=== PATIENT | female | born 1980 | race Caucasian/White ===

== ENCOUNTER 2018-11-06 18:59 | Observation (INO) | payer OTHER ==
[2018-11-06] MEDS ORDERED: SODIUM CHLORIDE 0.9% 1,000 ML IV STA (19:40)
--- NOTE | 2018-11-06 19:40 | ED ---
Chest Pain HPI - General Chief Complaint: Chest Pain Stated Complaint: Chest Pain, Dizziness Time Seen by Provider: 11/06/18 19:39 Source: patient, RN notes reviewed, old records reviewed Mode of arrival: ambulatory Limitations: no limitations - History of Present Illness Initial Comments: This is a 30-year-old female to the ER for evaluation. This patient presents today for evaluation regards to chest pain. Anterior chest pain rating to back to left arm. Mild nausea no vomiting no fevers no shortness of breath no diaphoresis. Patient also complains of dizziness, symptoms 2 days. No history of high blood pressure cholesterol diabetes. No fevers cough or congestion, no travel history or sick contacts. MD Complaint: chest pain -: days(s) (2) Onset: during rest, awoke with symptoms Pain Location: left chest Pain Radiation: LUE, jaw/teeth Severity: mild Severity scale (1-10): 3 Quality: aching Consistency: intermittent Improves With: nothing Worsens With: nothing Context: other (None) Anginal Symptoms: nausea Other Symptoms: other (None) Treatments Prior to Arrival: none - Related Data Home Medications Medication Instructions Recorded Confirmed Fexofenadine HCl [Giovanna Allergy] 180 mg PO DAILY 11/06/18 11/06/18 Multivitamins, Thera [Multivitamin 1 tab PO DAILY 11/06/18 11/06/18 (formulary)] Allergies Allergy/AdvReac Type Severity Reaction Status Date / Time No Known Allergies Allergy Verified 11/06/18 20:29 Review of Systems ROS Statement: Those systems with pertinent positive or pertinent negative responses have been documented in the HPI. ROS Other: All systems not noted in ROS Statement are negative. EKG Findings - EKG Comments: EKG Findings:: EKG shows sinus rhythm rate of 60, MO 194, QRS 84, QTC 384 Past Medical History Additional Past Medical History / Comment(s): mitral valve prolapse History of Any Multi-Drug Resistant Organisms: None Reported Past Surgical History: No Surgical Hx Reported Past Psychological History: No Psychological Hx Reported Smoking Status: Never smoker Past Alcohol Use History: None Reported Past Drug Use History: None Reported General Exam Limitations: no limitations General appearance: alert, in no apparent distress Head exam: Present: atraumatic, normocephalic, normal inspection Eye exam: Present: normal appearance, PERRL, EOMI. Absent: scleral icterus, conjunctival injection, periorbital swelling ENT exam: Present: normal exam, mucous membranes moist Neck exam: Present: normal inspection. Absent: tenderness, meningismus, lymphadenopathy Respiratory exam: Present: normal lung sounds bilaterally. Absent: respiratory distress, wheezes, rales, rhonchi, stridor Cardiovascular Exam: Present: regular rate, normal rhythm, normal heart sounds. Absent: systolic murmur, diastolic murmur, rubs, gallop, clicks GI/Abdominal exam: Present: soft, normal bowel sounds. Absent: distended, tenderness, guarding, rebound, rigid Extremities exam: Present: normal inspection, full ROM, normal capillary refill. Absent: tenderness, pedal edema, joint swelling, calf tenderness Back exam: Present: normal inspection Neurological exam: Present: alert, oriented X3, CN II-XII intact Psychiatric exam: Present: normal affect, normal mood Skin exam: Present: warm, dry, intact, normal color. Absent: rash Course Vital Signs 11/06/18 11/06/18 19:16 22:16 Temperature 97.8 F Pulse Rate 78 72 Respiratory 18 18 Rate Blood Pressure 148/82 120/84 O2 Sat by Pulse 100 98 Oximetry - Reevaluation(s) Reevaluation #1: 11/06/18 22:03 Medical record is reviewed 11/06/18 22:40 no prior heart evaluation Reevaluation #2: 11/06/18 22:39 patient has persistend symptoms, not feeling well. Chest Pain MDM - MDM 38 female to the ED w co dizziness, CP, L jaw pain, not feeling well, symptoms persistent. Patient has negative EKG and CTa, will admit for cardiology evaluation. Disposition Clinical Impression: Chest pain, Dizziness Disposition: ADMITTED IP TO THIS HOSP Condition: Undetermined Instructions: Chest Pain (ED) Is patient prescribed a controlled substance at d/c from ED?: No Referrals: Tommy Kat MD [Primary Care Provider] - 1-2 days
[2018-11-06 20:30] LABS: Albumin 4.5 g/dL (3.5-5.0); Anion Gap 8 mmol/L; Blood Urea Nitrogen 13 mg/dL (7-17); Calcium 9.9 mg/dL (8.4-10.2); Carbon Dioxide 28 mmol/L (22-30); Chloride 104 mmol/L (98-107); Glucose 90 mg/dL (74-99); Lipase 215 U/L (23-300); Magnesium 2.5 mg/dL (1.6-2.3); Sodium 140 mmol/L (137-145); Total Bilirubin 0.6 mg/dL (0.2-1.3); Total Protein 7.8 g/dL (6.3-8.2)
[2018-11-06 20:35] LABS: Creatine Kinase 87 U/L (30-135)
[2018-11-06 20:46] LABS: ALT 19 U/L (9-52); AST 25 U/L (14-36); Alkaline Phosphatase 52 U/L (38-126); Creatine Kinase MB 0.4 ng/mL (0.0-2.4); Potassium 4.4 mmol/L (3.5-5.1); Troponin I <0.012 ng/mL (0.000-0.034)
[2018-11-06 21:08] LABS: Basophils % (A) 0 %; Eosinophils # (A) 0.1 k/uL (0-0.7); Eosinophils % (A) 1 %; HCT 41.8 % (34.0-46.0); HGB 14.4 gm/dL (11.4-16.0); Lymphocytes # (A) 2.1 k/uL (1.0-4.8); Lymphocytes % (A) 26 %; MCH 31.7 pg (25.0-35.0); MCHC 34.4 g/dL (31.0-37.0); MCV 92.2 fL (80.0-100.0); Mean Platelet Volume 6.9; Monocytes # (A) 0.4 k/uL (0-1.0); Monocytes % (A) 5 %; Neutrophils # (A) 5.2 k/uL (1.3-7.7); Neutrophils % (A) 66 %; Platelet Count 308 k/uL (150-450); RBC 4.54 m/uL (3.80-5.40); RDW 12.9 % (11.5-15.5); WBC 7.9 k/uL (3.8-10.6)
[2018-11-06 21:20] LABS: D-Dimer 0.25 mg/L FEU (<0.60); Partial Thromboplastin Time 24.6 sec (22.0-30.0); Prothrombin Time 10.4 sec (9.0-12.0)
--- NOTE | 2018-11-06 21:49 | CT ---
EXAMINATION TYPE: CT angio chest DATE OF EXAM: 11/06/2018 9:21 PM COMPARISON: None HISTORY: Chest pain, dizziness and epigastric pain CT DLP: 193.8 mGycm Automated exposure control for dose reduction was used. CONTRAST: CTA scan of the thorax is performed with IV Contrast, patient injected with 100 mL of Isovue 370, pul monary embolism protocol. There are 3-D post processed images.. FINDINGS: Heart size is normal. There is no pericardial effusion. 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 There is no mediastinal adenopathy. Great vessels appear intact. There are no hilar m asses. There is normal contrast opacification of the pulmonary arteries. There is no filling defect. There is no pleural effusion. Upper abdominal soft tissues are unremarkable. Lungs are clear of infil trate. There is no evidence of a pulmonary mass. IMPRESSION: NEGATIVE CT SCAN ANGIOGRAM OF THE CHEST. NO EVIDENCE OF PULMONARY EMBOLISM.
--- NOTE | 2018-11-06 21:59 | CT ---
EXAMINATION TYPE: CT abdomen pelvis w con DATE OF EXAM: 11/06/2018 COMPARISON: None HISTORY: Chest pain, dizziness and epigastric pain CT DLP: 540.5 mGycm Automated exposure control for dose reduction was used. TECHNIQUE: Helical acquisition of images was performed from the lung bases through the pelvis. CONTRAST: Performed without Oral Contrast and with IV Contrast, patient injected with 100 mL of Isovue 370. FINDINGS: Lung bases are clear. There is no pleural effusion. Heart size is normal. Liver spleen pancreas gallbladder appear normal. Bile ducts are not dilated. Stomach appears normal. There is no adrenal mass. Kidneys show satisfactory contrast opacification. There is no hydronephrosi s. Ureters are not dilated. There is no retroperitoneal adenopathy. Bladder distends smoothly. There is no inguinal hernia. There are bilateral cysts on the ovaries. The re is a 3.5 cm cyst on the left side and smaller cysts up to 1.5 cm on the right side. There is no fr ee fluid in the pelvis. The appendix appears normal. There is no mesenteric edema or adenopathy. Ther e is no evidence of a bowel obstruction. I see no intestinal wall thickening. IMPRESSION: BILATERAL OVARIAN CYSTS. OTHERWISE NEGATIVE CT SCAN OF THE ABDOMEN AND PELVIS.
[2018-11-06] MEDS ORDERED: NITROGLYCERIN SL TABS 0.4 MG TAB SUBLINGUAL PRN (22:37)
[2018-11-06] MEDS: SODIUM CHLORIDE 0.9% 1,000 ML IV SCH (23:08)
[2018-11-07 02:21] LABS: Creatine Kinase 57 U/L (30-135)
[2018-11-07 02:34] LABS: Creatine Kinase MB 0.3 ng/mL (0.0-2.4); Troponin I <0.012 ng/mL (0.000-0.034)
[2018-11-07] MEDS ORDERED: ONDANSETRON 4 MG/2 ML VIAL IVP STA (07:01)
--- NOTE | 2018-11-07 08:18 | CONS ---
CONSULTATION Mrs. Hicks is a 38-year-old female who presented with symptoms of dizziness, lightheadedness, nausea, and left-sided chest discomfort. Her symptoms started on Sunday, not activity related on and off and persistent. Because of that she came into the emergency room. At the time my evaluation, she is feeling well. She has been diagnosed with mitral valve prolapse in the past and had remote history of palpitation that has improved. She is reasonably active physically, but because of her recent dizziness being going on and some ear discomfort she has not been exercising regularly. She had recent course of steroids for possible ear inflammation. She has no history of obstructive coronary artery disease or prior episode of chest discomfort. She has no history of PND, orthopnea, or peripheral edema. Her coronary risk factors are negative for hypertension, hyperlipidemia, she is nondiabetic and nonsmoker. MEDICATION: Her medications at home include Giovanna on a p.r.n. basis and multivitamin. REVIEW OF SYSTEMS: RESPIRATORY SYSTEM: She has no recent wheezing. She has mild cough, dry at times. GI SYSTEM: No recent GI bleeding. No peptic ulcer disease. She any nausea. SYSTEM: No dysuria or hematuria. NERVOUS SYSTEM: No stroke or seizure. PHYSICAL EXAMINATION: She is a 38-year-old female, alert, oriented, in no apparent distress. Blood pressure 133/80 with the heart rate in the 60s. HEAD: Normocephalic. EYES: Sclerae anicteric. NECK: Good carotid upstroke. No bruit. No jugular venous distention. LUNGS: Clear to auscultation. HEART: Regular rate and rhythm. S1, S2. No S3 with systolic murmur at the apex. I am not able to hear a click. ABDOMEN: Soft, nontender. Positive bowel sounds. No organomegaly. EXTREMITIES: No edema. Intact distal pulses. LAB DATA: Lab data revealed troponin less than 0.012 for 2 samples. BUN and creatinine 13 and 0.7. Hemoglobin of 14.4. D-dimer 0.25. EKG revealed a sinus mechanism, normal axis and intervals with nonspecific ST-T wave changes. CT angiogram of the chest was unremarkable for a pulmonary embolism or dissection. She had an abdominal CT scan that revealed bilateral ovarian cyst. IMPRESSION: 1. Chest discomfort atypical for ischemic heart disease probably noncardiac. 2. Symptoms of dizziness with nausea could be related to inner ear inflammation. 3. Prior history of mitral valve prolapse. 4. Prior history of arrhythmia. RECOMMENDATION: From the cardiac standpoint, I will proceed with transthoracic echocardiogram and a stress echocardiogram and depending on those findings, further recommendation will be made. Thank you for this consult. We will follow with you. APOLLOL / IJN: [id number] /
[2018-11-07 08:51] VITALS: RESP 16
[2018-11-07] MEDS ORDERED: ASPIRIN 325 MG TAB PO SCH (09:00)
[2018-11-07 09:33] LABS: Cholesterol 192 mg/dL (<200); HDL Cholesterol 72 mg/dL (40-60); LDL Cholesterol,Calculated 110 mg/dL (0-99); Triglycerides 48 mg/dL (<150)
[2018-11-07 10:24] LABS: Creatine Kinase 50 U/L (30-135)
[2018-11-07 10:36] LABS: Creatine Kinase MB <0.2 ng/mL (0.0-2.4); Troponin I <0.012 ng/mL (0.000-0.034)
[2018-11-07] MEDS: SODIUM CHLORIDE 0.9% 1,000 ML IV SCH (11:05)
--- NOTE | 2018-11-07 11:34 | ECHOF ---
Referral Reason:cp MEASUREMENTS -------- HEIGHT: 162.6 cm WEIGHT: 60.3 kg BP: RVIDd: 2.2 cm (< 3.3) IVSd: 0.9 cm (0.6 - 1.1) LVIDd: 4.2 cm (3.9 - 5.3) LVPWd: 1.0 cm (0.6 - 1.1) IVSs: 1.1 cm LVIDs: 3.2 cm LVPWs: 1.0 cm LA Diam: 2.5 cm (2.7 - 3.8) Ao Diam: 2.5 cm (2.0 - 3.7) AV Cusp: 1.4 cm (1.5 - 2.6) LA Diam: 3.2 cm (2.7 - 3.8) MV EXCURSION: 17.310 mm (> 18.000) MV EF SLOPE: 96 mm/s (70 - 150) EPSS: 0.9 cm MV E William: 0.83 m/s MV DecT: 177 ms MV A William: 0.90 m/s MV E/A Ratio: 0.92 AV maxP.01 mmHg AV meanP.50 mmHg AR PHT: 558 ms RAP: 5.00 mmHg RVSP: 21.30 mmHg FINDINGS -------- Sinus rhythm. This was a technically good study. LV size, wall thickness and systolic function are normal, with an EF greater than 55%. The left gely tricular size is normal. The right ventricle is normal in size. The left atrial size is normal. The right atrial size is normal. There is mild aortic valve sclerosis. There is mild aortic regurgitation. There is mild aortic st enosis present. Peak/mean gradient across the Aortic Valve is 25.01mmHg / 12.50mmHg. The mitral valve is normal. No mitral regurgitation. Mild tricuspid regurgitation present. Right ventricular systolic pressure is normal at < 35 mmHg. The right ventricular systolic pressure, as measured by Doppler, is 21.30mmHg. There is no pulmonic regurgitation present. The aortic root size is normal. There is no pericardial effusion. CONCLUSIONS -------- 1. Sinus rhythm. 2. LV size, wall thickness and systolic function are normal, with an EF greater than 55%. 3. The left ventricular size is normal. 4. The left atrial size is normal. 5. There is mild aortic valve sclerosis. 6. There is mild aortic regurgitation. 7. There is mild aortic stenosis present. 8. Peak/mean gradient across the Aortic Valve is 25.01mmHg / 12.50mmHg. 9. No mitral regurgitation. 10. Mild tricuspid regurgitation present. 11. Right ventricular systolic pressure is normal at < 35 mmHg. 12. There is no pulmonic regurgitation present. 13. The aortic root size is normal. 14. There is no pericardial effusion. BUSINESS LAW TEACHER: Maryellen Johnson RDCS
--- NOTE | 2018-11-07 13:12 | ECHOS ---
STRESS ECHOCARDIOGRAM DATE OF SERVICE: 11/07/2018 INDICATIONS: Chest pain. MEDICATIONS: BASELINE HEART RATE: 84 BASELINE BLOOD PRESSURE: 118/80 MAXIMUM HEART RATE: 161 MAXIMUM BLOOD PRESSURE: 160/73 85% MPHR: 155 100% MPHR: 182 METS: 10.3 MAXIMUM STAGE REACHED: III TOTAL EXERCISE TIME: 9 minutes CLINICAL INFORMATION: Baseline rhythm is sinus mechanism, rate of 84, normal axis and intervals, minor nonspecific ST-T wave changes. Baseline blood pressure 118/80 mmHg. Patient exercised on Giovanni protocol for 9 minutes reaching peak rate of 161 beats per minute which is equal to 88% maximum predicted heart rate. Peak blood pressure 160/73 mmHg. Test was terminated secondary to fatigue. There was no chest pain. Electrocardiograph monitoring revealed no evidence of diagnostic ischemic ST deviation. Baseline echocardiogram revealed normal wall thickness and motion. At peak exercise, there was normal wall motion augmentation with no hypokinesis or dyskinesis. CONCLUSION: 1. Average exercise tolerance with normal echocardiograph response to exercise. 2. Normal stress echocardiogram with no evidence of stress induced ischemia. MMODL / IJN: [id number] /
[2018-11-07 15:37] VITALS: BP 108/70; PULSE 75; TEMP 97.4
[2018-11-07] MEDS ORDERED: MECLIZINE 25 MG TAB PO STA (16:35)
--- NOTE | 2018-11-07 23:47 | DS ---
DISCHARGE SUMMARY HISTORY AND PHYSICAL AND DISCHARGE SUMMARY: DATE OF ADMISSION: 11/06/2018. DATE OF DISCHARGE: 11/07/2018 PRESENTING COMPLAINT: Dizzy. HISTORY OF PRESENTING COMPLAINT: This is a very pleasant 38-year-old patient who follows with Dr. Kat. Patient is here with her . Patient for the last few days has been not feeling too well, having some nausea, feeling hot and cold, some discomfort in the chest, feeling tired and rundown. She did not check her fevers. Sometimes getting dizzy to the point she thought she was going to pass out, but never did. At her baseline, patient is rather active otherwise. The patient went to see her family doctor. She was told she has got some water in the ear. Patient was given Giovanna and sent in for the same. No double vision. No focal weakness otherwise. Appetite had gone down a bit. Patient is otherwise pretty active, does work out in the morning. REVIEW OF SYSTEMS: CONSTITUTIONAL: As above. HEENT: As above. RESPIRATORY: None. CARDIOVASCULAR: As above. GASTROINTESTINAL: None. GENITOURINARY: None. MUSCULOSKELETAL: None. DERMATOLOGICAL: None. HEMATOLOGICAL: None. LYMPHATICS: None. PSYCHIATRY: None. NEUROLOGICAL: As above. PAST MEDICAL HISTORY: Mitral valve prolapse. PAST SURGICAL HISTORY: None. 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 . Does not smoke or drink alcohol. FAMILY HISTORY: Maternal grandfather had MO in the 60s. HOME MEDICATIONS: Giovanna. ALLERGIES: NONE. PHYSICAL EXAMINATION: Temperature 97.8, pulse 69, respiration 16, blood pressure 128/78, pulse ox 99% on room air. GENERAL APPEARANCE: Average build. Sitting up. Comfortable. EYES: Pupils equal. Conjunctivae normal. HEENT: External appearance of nose and ears normal. Oral cavity normal. NECK: JVD not raised. Mass not palpable. RESPIRATORY: Effort normal. Lungs are clear. CARDIOVASCULAR: First and second sounds normal. No edema. ABDOMEN: Soft, non-tender. Liver and spleen not palpable. LYMPHATIC: No lymph node palpable in neck or axillae. PSYCHIATRY: Alert and oriented x3. Mood and affect normal. NEUROLOGICAL: Pupils equal. Cranial nerves grossly intact. Power and sensation grossly intact. INVESTIGATIONS: EKG tracing, personally reviewed by me, shows sinus rhythm, nonspecific T-wave changes. Chest CTA shows no infiltrate. Negative for PE. CT of the abdomen and pelvis shows bilateral ovarian cysts. Two-D echocardiogram is normal with preserved EF. Stress echocardiogram normal. ASSESSMENT: 1. Episode of patient feeling hot, cold. Fluid detected in the ear. Some dizziness, likely acute vestibulitis, likely viral in nature. Patient has had no fever as such and no white count. No other neurological symptoms. 2. Nonspecific EKG changes, for which Cardiology was consulted. Did have a negative stress test. Patient at her baseline is rather active. PLAN: Patient will be given Antivert. Will give that for 3 days and then may use p.r.n. Patient is to follow up with Cardiology as an outpatient just to make sure everything else is fine. Care was discussed with the patient and her in detail. Several questions were answered. DISCHARGE MEDICATIONS: Antivert 25 mg p.o. t.i.d. for 3 days, then q.8 p.r.n. Follow up with Dr. Salinas on 12/10/2018. Follow up with Dr. Kat in 3 days. This is both a history and physical and a discharge summary on this patient. MMODL / IJN: [id number] /
== END 2018-11-07 17:55 | disposition home or self-care (01) ==
LOC: EC 18:59 → 1SOBS 22:38
PROVIDERS: ADMIT Hospitalist; ATTEND Hospitalist
DX: R07.89 Other chest pain (principal); R42 Dizziness and giddiness; R11.0 Nausea; I34.1 Nonrheumatic mitral (valve) prolapse; N83.202 Unspecified ovarian cyst, left side; N83.201 Unspecified ovarian cyst, right side; Z79.899 Other long term (current) drug therapy; Z86.79 Personal history of other diseases of the circulatory system; Z82.49 Family history of ischemic heart disease and other diseases of the circulatory system
CPT/HCPCS: 96361 ×3; 96374; 99285; 36415; 93005; 93306; 93351; 85379; 80061; 80053; 82550 ×2; 82553 ×2; 83690; 83735; 84484 ×2; 85025; 85610; 85730; 71275; 74177; G0378 ×2; J2405; Q9967

== ENCOUNTER → 2019-01-01 | Outpatient (CLI) | payer OTHER ==
--- NOTE | 2019-01-07 13:32 | ENG ---
ELECTRONYSTAGMOGRAM REPORT VNG REPORT: DATE OF SERVICE: 01/01/2019. VNG INDICATIONS: Vertigo onset August 2018, associated with an ear infection, gradual and currently staying the same. Spells occur 2 to 3 per week, lasting for 5 to 20 seconds at a time. Dizziness can occur with bending over or head down position only. No imbalance or falling reported. No difficulties with hearing. Tinnitus in the left ear which is steady. Fullness or pressure in both ears. Dizziness can be associated by headaches or pressure in the head. No double vision or other symptoms associated. VNG FINDINGS: Saccades shows intact peak velocities, accuracies and latencies. Gaze with fixation shows no nystagmus in any of the directions of gaze including centrally with vision denied. Tracking shows no significant breakups. Optokinetic nystagmus shows no asymmetry at faster or slower speeds. Static position testing in 6 different positions with eyes opened and with vision denied shows no nystagmus. Rachel-Hallpike maneuvers show a moderate degree of vertical and horizontal left nystagmus on the left side but not accompanied by dizziness. Caloric testing shows an unilateral left caloric weakness of 32% consistent with mild vestibulopathy. IMPRESSION: VNG findings are consistent with a chronic well-compensated mild left vestibulopathy. Rachel-Hallpike maneuvers picked up moderate vertical nystagmus and moderate degree left beating nystagmus in the Rachel-Hallpike maneuver on the left, not in association with dizziness. Finding is of uncertain significance given that there was no nystagmus in any of the static positions tested. MMRUTHL / IJN: [id number] /
== END ==
LOC: NEUROMAIN 07:05
PROVIDERS: ATTEND Otolaryngology
DX: R53.1 Weakness (principal)
CPT/HCPCS: 92537; 92540

== ENCOUNTER → 2019-10-01 | Outpatient (CLI) | payer OTHER ==
--- NOTE | 2019-10-01 08:52 | US ---
EXAMINATION TYPE: US abdomen complete DATE OF EXAM: 10/01/2019 COMPARISON: CT abdomen pelvis dated 11/06/2018 CLINICAL HISTORY: R10.13 epigastric abdominal pain. Generalized pain. EXAM MEASUREMENTS: Liver Length: 13.3 cm Gallbladder Wall: 0.1 cm CBD: 0.4 cm Spleen: 10.8 cm Right Kidney: 9.9 x 5.5 x 4.4 cm Left Kidney: 10.4 x 4.6 x 5.0 cm Pancreas: wnl Liver: wnl Gallbladder: wnl Evidence for sonographic Duffy's sign: No CBD: wnl Spleen: wnl Right Kidney: No hydronephrosis or masses seen Left Kidney: No hydronephrosis or masses seen Upper IVC: wnl Abd Aorta: No AAA visualized The liver is homogenous. The intrahepatic portion of the IVC and proximal abdominal aorta are within normal limits. There is no evidence of cholelithiasis. Common bile duct is unremarkable. The visu alized portions of the pancreas are homogenous. The spleen is unremarkable. Kidneys are symmetric a nd free of hydronephrosis. No renal lesions are seen. IMPRESSION: Unremarkable abdominal ultrasound. No sonographic evidence of cholelithiasis nor acute ch olecystitis.
--- NOTE | 2019-10-01 09:03 | CT ---
EXAMINATION TYPE: CT angio chest DATE OF EXAM: 10/01/2019 COMPARISON: 11/06/2018 HISTORY: thoracic anyeurysm F/U CT DLP: 702 mGycm CONTRAST: CTA thoracic aorta with 3-D reconstruction is performed and with IV Contrast, patient injected with 1 00 mL of Isovue 370. Contrast CTA of the thoracic aorta was performed from the lung apex through the upper abdomen. 3D re construction imaging obtained at a separate workstation. CT Chest: THORACIC AORTA: Is ectasia of the ascending thoracic aorta measuring 3.9 cm in greatest AP dimension. No evidence for dissection or complicating factor. Aortic arch and descending thoracic aorta are of normal caliber. LUNGS: The lungs are clear and free of infiltrate or atelectasis. No pulmonary nodule or mass is det ected. No pleural effusion or CT evidence of interstitial lung disease. MEDIASTINUM: No evidence for mediastinal hematoma. The heart is not enlarged. No evidence for med iastinal mass or adenopathy. HILAR STRUCTURES: No evidence for mass. No hilar adenopathy is appreciated. OTHER: No significant abnormality. IMPRESSION- 1. Ectasia thoracic aorta without aneurysm at this time.
== END | disposition home or self-care (01) ==
LOC: RADCTMAIN 07:18
PROVIDERS: ATTEND Family Medicine
DX: I77.810 Thoracic aortic ectasia (principal); R10.13 Epigastric pain
CPT/HCPCS: 76700; 71275; Q9967

== ENCOUNTER → 2019-10-08 | Outpatient (CLI) | payer OTHER ==
--- NOTE | 2019-10-08 09:26 | NM ---
EXAMINATION TYPE: NM hepatobiliary w EF DATE OF EXAM: 10/08/2019 COMPARISON: Abdominal ultrasound dated 10/01/2019 HISTORY: Epigastric pain TECHNIQUE: After the intravenous administration of 4.2 mCi Tc 99m Mebrofenin hepatobiliary scintigrap hy is performed. Immediate images post injection. FINDINGS: There is satisfactory initial accumulation of tracer by the liver. The gallbladder is visualized wit hin 6 minutes. The small bowel activity is noted within 34 minutes. At one hour 8 ounces of oral en sure plus is given to mimic CCK and gallbladder ejection fraction is calculated at 64 %, in the jessenia l range. Therefore there is no scintigraphic evidence of cystic or common bile duct obstruction to s uggest acute cholecystitis or gallbladder dyskinesia. IMPRESSION: No scintigraphic evidence of acute cholecystitis, chronic cholecystitis nor biliary dyski nesia.
== END | disposition home or self-care (01) ==
LOC: RADNMMAIN 06:56
PROVIDERS: ATTEND Family Medicine
DX: R10.13 Epigastric pain (principal)
CPT/HCPCS: 78226; A9537

== ENCOUNTER → 2022-12-27 | Outpatient (CLI) | payer OTHER ==
--- NOTE | 2022-12-27 13:30 | CT ---
EXAMINATION TYPE: CT angio chest CT DLP: 362.1 mGycm, Automated exposure control for dose reduction was used. DATE OF EXAM: 12/27/2022 1:07 PM COMPARISON: 10/01/2019 CLINICAL INDICATION:Female, 42 years old with history of I71.20; thoracic aneurysm TECHNIQUE/CONTRAST: CTA scan of the thorax is performed with IV Contrast, patient injected with 100 mL of Isovue 370, pul monary embolism protocol. MIP images are created and reviewed these [facility] FINDINGS: Pulmonary Artery: There is no evidence for a filling defect within the pulmonary vasculature to sugge st acute pulmonary embolism. The pulmonary artery is of normal size. Lungs/Pleura: No evidence of focal consolidation, pleural effusion or pneumothorax. Airway: Large airways are patent. Heart: Heart is within normal limits for size. Vasculature: No evidence of aortic aneurysm. Ascending thoracic aorta measuring up to 3.9 cm. Descend ing thoracic aorta is within normal limits for size. No filling defect within the pulmonary arterial vasculature to suggest pulmonary embolus. There is a 4 vessel aortic arch with origins patent. Mediastinum: No gross evidence of adenopathy. Musculoskeletal: No acute osseous abnormalities Soft Tissues: Unremarkable. Lower neck: No significant findings. Upper Abdomen: No significant findings. IMPRESSION: Ascending thoracic aorta measuring up to 3.8 cm which is within normal limits. No evidence for descen ding thoracic aorta aneurysm. (Ectasia 4-5 cm, aneurysm greater than 5 cm)
== END | disposition home or self-care (01) ==
LOC: RADCTMAIN 11:16
PROVIDERS: ATTEND Internal Medicine Interventional Cardiology
DX: I71.20 Thoracic aortic aneurysm, without rupture, unspecified (principal)
CPT/HCPCS: 71275; Q9967

== ENCOUNTER → 2023-04-24 | Outpatient (CLI) | payer OTHER ==
--- NOTE | 2023-04-24 15:17 | US ---
EXAMINATION TYPE: US pelvis complete transvag DATE OF EXAM: 04/24/2023 COMPARISON: 11/06/2018 CLINICAL INDICATION: Female, 42 years old with history of R10.2 PELVIC PAIN, N95.0 POST MENOPAUSAL BL EEDING; postmenopausal bleeding. TECHNIQUE: Transvaginal (TV) and Transabdominal (TA) . Transabdominal sonographic images of the pel vis were acquired. Transvaginal sonographic images were medically necessary to better assess the fol lowing anatomy: uterus and ovaries. EXAM MEASUREMENTS: Uterus: 7.0 x 3.7 x 4.6 cm Endometrial Stripe: 0.3 cm Right Ovary: 1.8 x 1.3 x 1.7 cm Left Ovary: 3.3 x .9 x 1.5 cm 1. Uterus: Anteverted 1.3 cm nabothian cyst. 2. Endometrium: wnl 3. Right Ovary: wnl 4. Left Ovary: anechoic area seen 1.1 x 1.9 x 1.4 cm. Appropriate color Doppler flow present. 5. Bilateral Adnexa: wnl 6. Posterior cul-de-sac: wnl IMPRESSION: 1. Endometrium within normal limits for thickness. No evidence for suspicious mass. 2. Left ovarian cyst measuring up to 1.1 cm
== END | disposition home or self-care (01) ==
LOC: RADUSWWP 14:16
PROVIDERS: ATTEND Obstetrics & Gynecology
DX: N83.202 Unspecified ovarian cyst, left side (principal); N95.0 Postmenopausal bleeding
CPT/HCPCS: 76830; 76856

== ENCOUNTER → 2024-11-24 | Outpatient (CLI) | payer OTHER ==
--- NOTE | 2024-11-24 14:26 | MR ---
EXAMINATION TYPE: MR knee LT wo con DATE OF EXAM: 11/24/2024 7:03 AM COMPARISON: None. CLINICAL INDICATION: Female, 44 years old with history of S82.102D closed fx proximal end of L tibia, Left knee pain, S/P injury. IV Contrast: cc (None if empty) TECHNIQUE: Multiplanar, multisequence imaging of the left knee is performed without IV contrast. FINDINGS: There is no bone contusion or fracture. There is no joint effusion. There is a tiny Finch's cyst. There is a partial tear/strain of the anterior cruciate ligament at its distal attachment. The truck hopper ior cruciate ligament and collateral ligaments are intact. Tiny vertical tear through the body of the medial meniscus. The lateral meniscus is intact. The articular cartilages are well preserved. The quadriceps and patellar tendons are intact. IMPRESSION: 1. No fracture or joint effusion. Tiny Finch's cyst. 2. Small vertical tear of the body of the medial meniscus. 3. Partial tear/strain of the distal aspect of the anterior cruciate ligament. [facility], , 11/24/2024 2:23 PM
== END | disposition home or self-care (01) ==
LOC: RADMRIMAIN 06:20
PROVIDERS: ATTEND Orthopaedic Surgery
DX: S82.102D Unspecified fracture of upper end of left tibia, subsequent encounter for closed fracture with routine healing (principal); S83.242D Other tear of medial meniscus, current injury, left knee, subsequent encounter; X58.XXXD Exposure to other specified factors, subsequent encounter

== ENCOUNTER → 2025-04-01 | Outpatient (CLI) | payer OTHER ==
--- NOTE | 2025-04-01 11:34 | CT ---
EXAMINATION TYPE: CT angio chest CT DLP: 366.6 mGycm, Automated exposure control for dose reduction was used. DATE OF EXAM: 04/01/2025 11:26 AM COMPARISON: CTA chest to 123, 10/01/2019, 11/06/2018 CLINICAL INDICATION:Female, 44 years old with history of I71.20 THORACIC AORTIC ANEURYSM, WITHOUT RUP TURE; follow up aneurysm TECHNIQUE/CONTRAST: CTA scan of the thorax is performed without and with IV Contrast, patient injected with 100 ml mL of Isovue 370. 3D reconstructed images are created on an independent workstation and reviewed.. FINDINGS: Lungs/Pleura: No evidence of focal consolidation, pleural effusion or pneumothorax. No suspicious pul monary nodule or mass. Airway: Large airways are patent. Heart: Size within normal limits.No pericardial effusion. Small aortic valvular calcifications. No si gnificant coronary artery calcifications. Vasculature: Four-vessel aortic arch. No evidence for intramural hematoma or dissection. Stable ectas ia of the ascending thoracic aorta measuring up to 3.9 cm. No pulmonary embolism identified. Normal c aliber of the main pulmonary artery. Mediastinum: No evidence of adenopathy. Musculoskeletal: No acute osseous abnormalities Soft Tissues: Unremarkable. Lower neck: No significant findings. Upper Abdomen: No significant findings. IMPRESSION: Stable ectasia of the ascending thoracic aorta measuring up to 3.9 cm. [facility], , 04/01/2025 11:32 AM
== END | disposition home or self-care (01) ==
LOC: RADCTMAIN 10:04
PROVIDERS: ATTEND Internal Medicine Interventional Cardiology
DX: I77.810 Thoracic aortic ectasia (principal)
CPT/HCPCS: 71275; Q9967